=== PATIENT | male | born 1970 | race Caucasian/White ===

== ENCOUNTER 2018-05-02 12:18 | Emergency (ER) | payer MEDICAID ==
[~2018-05-02] VITALS: Ht 172.7 cm; Wt 77.1 kg
--- NOTE | ~2018-05-02 | CN ---
PATIENT NAME:ELIUD ASHLEY MEDICAL RECORD: [id number] : 72 LOCATION:D.ER ADMIT DATE: ACCOUNT: [id number] CONSULTING PHYSICIAN: FARHAN GUERRERO MD REFERRING PHYSICIAN: ARYAN SAHU MD DATE OF CONSULTATION: 05/02/2018 ADMITTING DIAGNOSES: 1. Angina. 2. Coronary artery disease. 3. Previous percutaneous transluminal coronary angioplasty stent. 4. Shortness of breath, dyspnea on exertion. HISTORY OF PRESENT ILLNESS: This is a gentleman with a past history of coronary artery disease, past history of PTCA stent, who had the same symptoms he had prior to the stenting today. He broke out in a diaphoretic sweat and began having some mild chest pressure as well as short of breath. His EKG is normal. Troponin as well is normal on first draw. He is not having a symptomatology now. PHYSICAL EXAMINATION: GENERAL APPEARANCE: Well-nourished, well-developed, appears stated age. Level of distress, comfortable. PSYCHIATRIC: Mental status, alert, normal affect. Orientation, oriented to time, place and person. EYES: Lids and conjunctiva, noninjected. No discharge, no pallor. ENT: Lips, teeth, gums, normal dentition. Oropharynx, no cyanosis, no pallor. NECK: Carotid arteries, bilateral normal upstroke, no bruits, no thrills. JUGULAR VEINS: No jugular venous pressure or distention. CERVICAL LYMPH NODES: Nontender, nonenlarged. THYROID: Not enlarged. Nontender. No nodules. LUNGS: Respiratory effort, unlabored. CHEST: Normal curvature. No thoracic deformity. No chest wall tenderness. Percussion, resonant. Auscultation, clear. No wheezes, no rales, no rhonchi. CARDIOVASCULAR: Precordial exam, nondisplaced. No heaves or pericardial thrills. Rate and rhythm, regular. Heart sounds, normal S1, normal S2. No S3, no gallop, no rub. Systolic murmur, not heard. Diastolic murmur, not heard. EXTREMITIES: No cyanosis, no edema. Peripheral pulses, full and equal in all extremities, except as noted. No bruits appreciated. ABDOMEN: Soft, nondistended. Normal aorta. No bruit. Nontender. No masses. Liver, nontender, no hepatomegaly. Spleen, nontender, no splenomegaly. MUSCULOSKELETAL: No joint tenderness. No joint swelling. No erythema. NEUROLOGICAL: Normal gait, normal strength, normal tone. SKIN: Warm and dry. OVERALL IMPRESSION: Diaphoresis, shortness of breath, and chest pain. Everything appears normal objectively. We will repeat a set of enzymes at 4 hours, if this is normal he can go home. We will see him in the office and set him up for risk stratification with stress testing unless he continues to have further symptomatology, would then lead towards repeat coronary angiography. TRANSINT:[id number] Voice Confirmation ID: [id number] DOCUMENT ID: [id number] CONSULT REPORT [id number] ELIUD ASHLEY, FARHAN ALONSO at 1457 CC: [id number] DICTATION DATE: 05/02/18 1351 BUG TRIMMER: 05/02/18 1447 DEP ER 05/02/[address] [id number]
[2018-05-02 12:24] VITALS: Ht 172.7 cm; Wt 77.1 kg
[2018-05-02 12:41] LABS: BASOPHILS 0.1 % (0-2); EOSINOPHILS 0.5 % (0-7); HEMOGLOBIN 15.2 g/dL (13.5-17.5); IMMATURE GRANULOCYTES 0.4 % (0-5); LYMPHOCYTES 17.4 % (15-50); MCH 32.1 pg (26.0-34.0); MCHC 34.5 g/dL (31.0-37.0); MEAN PLATELET VOLUME 10.3 fL (7.4-10.4); MONOCYTES 14.5 % (2-11); NEUTROPHILS 67.1 % (40-80); PLATELET COUNT 239 10x3/uL (130-400); RBC 4.73 10x6/uL (4.20-6.10); RDW 13.3 % (11.5-14.5); WBC 9.7 10x3/uL (4.8-10.8)
[2018-05-02 12:55] LABS: ALBUMIN 3.9 g/dL (3.4-5.0); ALKALINE PHOSPHATASE 79 U/L (46-116); ALT (SGPT) 20 U/L (10-68); BILIRUBIN - TOTAL 1.23 mg/dL (0.2-1.3); CALC OSMOLALITY 273 mosm/kg (275-300); CALCIUM 9.6 mg/dL (8.5-10.1); CARBON DIOXIDE 24.5 mmol/L (21.0-32.0); CHLORIDE - SERUM 100 mmol/L (98-107); GLUCOSE 102 mg/dL (74-106); POTASSIUM - SERUM 3.8 mmol/L (3.5-5.1); PROTEIN - SERUM 8.5 g/dL (6.4-8.2); SODIUM 136 mmol/L (136-145); UREA NITROGEN 17 mg/dL (7-18); eGFR NON AFRICAN AMERICAN 85 mL/min (90-120)
[2018-05-02 13:07] LABS: CKMB 0.7 U/L (0.0-3.6); CREATINE KINASE 126 UL (21-232); PRO BNP 102 pg/mL (0-125); TROPONIN-I < 0.017 ng/mL (0.000-0.060)
[2018-05-02 17:16] VITALS: BP 128/68
== END 2018-05-02 17:18 | disposition home or self-care (01) ==
LOC: D.ER 12:18
PROVIDERS: Family Medicine
DX: R61 Generalized hyperhidrosis (principal); R00.1 Bradycardia, unspecified; R07.89 Other chest pain; R00.0 Tachycardia, unspecified

== ENCOUNTER → 2020-01-25 08:19 | Outpatient (CLI) | payer MEDICARE ==
[2018-05-02 12:24] VITALS: BMI 33.5
[2020-01-25 23:19] LABS: CHOL - HDL RATIO 2.4 ratio (2.3-4.9); LDL-HDL RATIO 1.2 ratio (1.5-3.5)
== END | disposition home or self-care (01) ==
LOC: D.HCCECHO 08:19
PROVIDERS: ATTEND Internal Medicine Cardiovascular Disease
DX: I25.10 Atherosclerotic heart disease of native coronary artery without angina pectoris (principal)